=== PATIENT | female | born 1965 | race African-American/Black ===

== ENCOUNTER 2020-05-10 23:44 | Emergency (ER) | payer OTHER ==
[~2020-05-10] VITALS: Ht 170.2 cm; Wt 72.6 kg
[2020-05-10] MEDS ORDERED: PROAIR HFA8.5 GM INH (23:56)
[2020-05-10] MEDS ORDERED: ADVAIR 250-501 EACH INH (23:56)
[2020-05-11] MEDS ORDERED: HYDROCODON-ACE1 EAC8 PO (01:04)
[2020-05-11] MEDS ORDERED: KEFLEX500 M1 PO (01:04)
[2020-05-11] MEDS ORDERED: ERYTHROMYCIN E3.5 G2 OPHTHALMIC (01:04)
[2020-05-11 01:16] VITALS: BP 136/87
== END 2020-05-11 01:17 | disposition home or self-care (01) ==
LOC: M.ERS 23:44
DX: S05.01XA Injury of conjunctiva and corneal abrasion without foreign body, right eye, initial encounter (principal); J45.909 Unspecified asthma, uncomplicated; Z79.899 Other long term (current) drug therapy; Z88.0 Allergy status to penicillin; Z88.5 Allergy status to narcotic agent; X58.XXXA Exposure to other specified factors, initial encounter; Y93.89 Activity, other specified; Y92.89 Other specified places as the place of occurrence of the external cause; Y99.8 Other external cause status